=== PATIENT | male | born 1995 | race Caucasian/White ===

== ENCOUNTER 2017-03-21 19:55 | Emergency (ER) | payer OTHER ==
[2017-03-21 23:38] VITALS: BP 139/77
== END 2017-03-21 23:51 | disposition home or self-care (01) ==
LOC: ED 19:55
DX: S61.011A Laceration without foreign body of right thumb without damage to nail, initial encounter (principal); J45.909 Unspecified asthma, uncomplicated; V09.9XXA Pedestrian injured in unspecified transport accident, initial encounter; Y93.89 Activity, other specified; Y99.8 Other external cause status; Y92.89 Other specified places as the place of occurrence of the external cause
CPT/HCPCS: A4570

== ENCOUNTER 2017-03-23 17:42 | Emergency (ER) | payer OTHER ==
[2017-03-23 17:48] VITALS: BP 111/66
== END 2017-03-23 18:59 | disposition home or self-care (01) ==
LOC: ED 17:42
DX: S61.011D Laceration without foreign body of right thumb without damage to nail, subsequent encounter (principal); X58.XXXD Exposure to other specified factors, subsequent encounter; J45.909 Unspecified asthma, uncomplicated

== ENCOUNTER 2017-08-04 14:51 | Emergency (ER) | payer OTHER ==
[~2017-08-04] VITALS: Ht 182.9 cm; Wt 74.4 kg
[2017-08-04 17:54] LABS: BASOPHIL % 0.4 % (0-2); PLATELET COUNT 221 x10^3mcL (130-400); RED CELL DISTRIBUTION WIDTH 13.1 % (11.5-14.5)
[2017-08-04 17:55] LABS: CALCIUM 9.6 mg/dL (8.5-10.1); CARBON DIOXIDE 30.4 mmol/L (21-32); CHLORIDE SERUM 105 mmol/L (98-107); CREATININE SERUM 1.1 mg/dL (0.7-1.3); GFR1 > 60 mL/min; GLUCOSE SERUM 106 mg/dL (74-106); SODIUM SERUM 143 mmol/L (136-145)
[2017-08-04 18:01] LABS: ALBUMIN 4.8 g/dL (3.4-5.0); ALKALINE PHOSPHATASE 47 U/L (46-116); ALT/SGPT 39 U/L (16-63); AST/SGOT 35 U/L (15-37); BILIRUBIN TOTAL 1.71 mg/dL (0.20-1.00); LIPASE 58 IU/L (73-393); TOTAL PROTEIN, SERUM 8.2 g/dL (6.4-8.2)
[2017-08-04 19:08] VITALS: BP 128/75
== END 2017-08-04 19:08 | disposition home or self-care (01) ==
LOC: ED 14:51
PROVIDERS: Emergency Medicine
DX: F10.988 Alcohol use, unspecified with other alcohol-induced disorder (principal); R11.10 Vomiting, unspecified; J45.909 Unspecified asthma, uncomplicated; F12.10 Cannabis abuse, uncomplicated
CPT/HCPCS: G0480; J2405; J3490; J7030; J7042

== ENCOUNTER 2020-03-07 05:31 | Emergency (ER) | payer SELFPAY ==
[~2020-03-07] VITALS: Ht 152.4 cm; Wt 79.2 kg
[2020-03-07 05:42] VITALS: Ht 152.4 cm; Wt 79.2 kg
[2020-03-07 07:03] LABS: BASOPHIL % 0.3 % (0-2); PLATELET COUNT 187 x10^3mcL (130-400); RED CELL DISTRIBUTION WIDTH 13.1 % (11.5-14.5)
[2020-03-07 08:05] LABS: CALCIUM 8.8 mg/dL (8.5-10.1); CARBON DIOXIDE 27.1 mmol/L (21-32); CHLORIDE SERUM 105 mmol/L (98-107); CREATININE SERUM 0.9 mg/dL (0.7-1.3); GFR1 > 60 mL/min; GLUCOSE SERUM 115 mg/dL (74-106); POTASSIUM SERUM 4.2 mmol/L (3.5-5.1); SODIUM SERUM 142 mmol/L (136-145)
[2020-03-07 08:10] LABS: ALBUMIN 4.2 g/dL (3.4-5.0); ALKALINE PHOSPHATASE 49 U/L (46-116); ALT/SGPT 20 U/L (16-63); AST/SGOT 15 U/L (15-37); BILIRUBIN TOTAL 1.1 mg/dL (0.20-1.00); LIPASE 58 IU/L (73-393); TOTAL PROTEIN, SERUM 6.6 g/dL (6.4-8.2)
[2020-03-07 08:26] VITALS: BP 110/72
== END 2020-03-07 08:26 | disposition home or self-care (01) ==
LOC: ED 05:31
PROVIDERS: Emergency Medicine
DX: R11.2 Nausea with vomiting, unspecified (principal); F12.10 Cannabis abuse, uncomplicated; J45.909 Unspecified asthma, uncomplicated
CPT/HCPCS: J1200; J1630; J7030